=== PATIENT | female | born 1970 | race Caucasian/White ===

== ENCOUNTER 2019-11-08 11:32 | Emergency (ER) | payer BC, MEDICAID, SELFPAY ==
[2019-11-08 11:41] VITALS: BP 129/76; PULSE 74; RESP 18; TEMP 36.4; O2SAT 98
--- NOTE | 2019-11-08 11:53 | ED.EAR ---
HPI - Ear Problem General Chief complaint: Ear Stated complaint: EARACHE Time Seen by Provider: 11/08/19 11:50 Source: patient and RN notes reviewed Mode of arrival: ambulatory Limitations: no limitations History of Present Illness HPI Narrative: 49-year-old female [facility] complaints of pain to her right ear for the past week.Patient has history of chronic right ear infections does presently have a tympanostomy tube in place to her right ear at this time. Patient states that she had some left over ear drops but pain to right ear and yellowish drainage has not resolved. Patient has been taking flonase for nasal drainage and some Ibuprofen or Tylenol for her discomfort. Patient denies any acute cough, fevers, shortness of breath or any sinus pain or pressure. Patient does admit to long history of tobacco abuse of 1/2 ppd of cigarettes for over 20 + years. MD Complaint: ear pain Location: right ear Duration: constant Severity: moderate Relieving factors: NDAIDs Exacerbating factors: nothing Discharge from ear: Reports yes - purulent Associated symptoms ear: decreased hearing, rhinorrhea and other (drainage) Treatment prior to arrival: eardrops and oral analgesic Related Data Home Medications Medication Instructions Recorded Confirmed aspirin [Adult Low Dose Aspirin] 81 mg PO DAILY 11/08/19 11/08/19 atorvastatin 40 mg PO DAILY 11/08/19 11/08/19 fluticasone propionate 50 mcg INTRANASAL BID 11/08/19 11/08/19 lisinopril 10 mg PO DAILY 11/08/19 11/08/19 metformin 500 mg PO BID 11/08/19 11/08/19 omeprazole 40 mg PO DAILY 11/08/19 11/08/19 tramadol 50 mg PO BID PRN 11/08/19 11/08/19 Allergies Allergy/AdvReac Type Severity Reaction Status Date / Time Penicillins Allergy Severe Anaphylactic Verified 11/08/19 11:38 Shock Sulfa (Sulfonamide Allergy Unknown HIVES Verified 11/08/19 11:38 Antibiotics) Review of Systems Review of Systems: Narrative: CONSTITUTIONAL: Denies fever, chills, or sweats. EYES: Denies visual changes, redness, or discharge. ENT:Positive rhinorrhea, congestion,no sore throat,right otalgia. CARDIOVASCULAR: Denies chest pain, palpitations, or edema. RESPIRATORY: Denies cough or dyspnea. GASTROINTESTINAL: Denies abdominal pain, nausea, vomiting, or diarrhea. GENITOURINARY: Denies dysuria or hematuria. SKIN: Denies rash or itching. MUSCULOSKELETAL: Denies back pain, joint pain, or myalgia. NEUROLOGIC: Denies headache, numbness, or weakness. PSYCHIATRIC:Positive history of anxiety or depression. All systems reviewed & are unremarkable except as noted in HPI and below PMFSH Past Medical History Medical History (Updated 11/10/19 @ 09:24 by Natacha Vila NP) Anxiety and depression Arthritis Chronic ear infection Diabetes type 2, controlled Eczema Elevated cholesterol Hypertension Sinusitis Surgical History Surgical History (Updated 11/10/19 @ 09:22 by Natacha Vila NP) H/O LEEP History of bilateral salpingo-oophorectomy History of carpal tunnel surgery of right wrist History of cholecystectomy History of esophagogastroduodenoscopy (EGD) Family History Family History (Updated 11/10/19 @ 09:15 by Natacha Vila NP) Sibling Diabetes mellitus Mother Heart disease Father Heart disease Social History Social History (Updated 11/10/19 @ 09:16 by Natacha Vila NP) Smoking packs per day: 0.5 Smoking cigarettes per day: 10.0 Years smoked: 20 Smoking pack-years: 10.00 Smoking status: Current every day smoker Substance use: never Living arrangements: with family Gender identity (if verbalized by the patient): Female Comments At time of signature, agree with nursing past medical, surgical, social and family history. There is no relevant family history pertinent to the presenting complaint Exam Narrative: Exam Narrative: GENERAL: Well-appearing, well-nourished, and in no acute distress. HEAD: Normocephalic, atraumatic. EYES: PE
== END 2019-11-08 12:20 | disposition home or self-care (01) ==
PROVIDERS: Emergency Provider Registered Nurse
DX: H66.001 Acute suppurative otitis media without spontaneous rupture of ear drum, right ear (principal); F17.210 Nicotine dependence, cigarettes, uncomplicated; I10 Essential (primary) hypertension; E78.00 Pure hypercholesterolemia, unspecified
CPT/HCPCS: 99213; G0463

== ENCOUNTER 2020-04-13 18:50 | Emergency (ER) | payer OTHER, SELFPAY ==
[2020-04-13 18:57] VITALS: BP 155/95; PULSE 72; RESP 16; TEMP 36.3; O2SAT 99
--- NOTE | 2020-04-13 19:09 | ED.LOWEXIN ---
HPI - Extremity Injury (Lower) General Chief Complaint: Extremity Injury, Lower Stated Complaint: toe up to calf hurting Time Seen by Provider: 04/13/20 19:09 Source: patient and RN notes reviewed Mode of arrival: ambulatory Limitations: no limitations History of Present Illness HPI Narrative: 50-year-old female who presents to [facility] with complaints of 3 day history of left great toe pain with radiating of pain to her left calf region especially with ambulation. Patient has no redness to her left great toe or any known injury, Patient has areas of psoriasis to anterior aspects of bilateral lower legs, no redness or swelling pain on palpation or warmth to her left calf. Patient has strong pedal and posterior tibial pulses to left foot, nailbeds have brisk capillary refill. Negative Thanh's sign noted. MD complaint: other (Left great toe 3 days with radiating to calf for one day) Onset (ago): day(s) (3) Injury: Left: foot (left great toe radiation to left calf) Type of Injury: unknown Place: home Severity: mild Severity scale (1-10): 2 Relieving factors: NSAID and other Exacerbating factors: other (flexion of left leg) Context: other (no know injury) Associated symptoms: other (discomfort) Other symptoms: none Treatments prior to arrival: NSAIDS Related Data Home Medications Medication Instructions Recorded Confirmed aspirin [Adult Low Dose Aspirin] 81 mg PO DAILY 11/08/19 11/08/19 atorvastatin 40 mg PO DAILY 11/08/19 11/08/19 lisinopril 10 mg PO DAILY 11/08/19 11/08/19 metformin 500 mg PO BID 11/08/19 11/08/19 omeprazole 40 mg PO DAILY 11/08/19 11/08/19 calcium carbonate [Calcium 600] 04/13/20 omega 5-tde-isz-fish oil [Fish Oil] 1 cap PO DAILY 04/13/20 04/13/20 Allergies Allergy/AdvReac Type Severity Reaction Status Date / Time Penicillins Allergy Severe Anaphylactic Verified 11/08/19 11:38 Shock Sulfa (Sulfonamide Allergy Unknown HIVES Verified 11/08/19 11:38 Antibiotics) Review of Systems Review of Systems: Narrative: CONSTITUTIONAL: Denies fever, chills, or sweats. EYES: Denies visual changes, redness, or discharge. ENT: Denies rhinorrhea, congestion, sore throat, or otalgia. CARDIOVASCULAR: Denies chest pain, palpitations, or edema. RESPIRATORY: Denies cough or dyspnea. GASTROINTESTINAL: Denies abdominal pain, nausea, vomiting, or diarrhea. GENITOURINARY: Denies dysuria or hematuria. SKIN: Denies rash or itching. MUSCULOSKELETAL: Denies back pain, joint pain, or myalgia, strain of left calf muscle, no redness warmth or swelling, left great toe discomfort NEUROLOGIC: Denies headache, numbness, or weakness. PSYCHIATRIC: Denies anxiety or depression. All systems reviewed & are unremarkable except as noted in HPI and below PMFSH Past Medical History Medical History (Updated 04/13/20 @ 19:28 by Natacha Vila NP) Anxiety and depression Arthritis Chronic ear infection Diabetes type 2, controlled Eczema Elevated cholesterol Hypertension Sinusitis Surgical History Surgical History (Updated 11/10/19 @ 09:22 by Natacha Vila NP) H/O LEEP History of bilateral salpingo-oophorectomy History of carpal tunnel surgery of right wrist History of cholecystectomy History of esophagogastroduodenoscopy (EGD) Family History Family History (Updated 11/10/19 @ 09:15 by Natacha Vila NP) Sibling Diabetes mellitus Mother Heart disease Father Heart disease Social History Social History (Updated 11/10/19 @ 09:16 by Natacha Vila NP) Smoking packs per day: 0.5 Smoking cigarettes per day: 10.0 Years smoked: 20 Smoking pack-years: 10.00 Smoking status: Current every day smoker Substance use: never Gender identity (if verbalized by the patient): Female Comments At time of signature, agree with nursing past medical, surgical, social and family history. There is no relevant family history pertinent to the presenting complaint Exam Narrative: Exam Narrative: GE
== END 2020-04-13 19:33 | disposition home or self-care (01) ==
PROVIDERS: Emergency Provider Registered Nurse
DX: M79.675 Pain in left toe(s) (principal); S86.112A Strain of other muscle(s) and tendon(s) of posterior muscle group at lower leg level, left leg, initial encounter; X58.XXXA Exposure to other specified factors, initial encounter; M19.90 Unspecified osteoarthritis, unspecified site; E11.9 Type 2 diabetes mellitus without complications; I10 Essential (primary) hypertension; E78.00 Pure hypercholesterolemia, unspecified
CPT/HCPCS: 99212; G0463

== ENCOUNTER 2020-12-06 14:32 | Emergency (ER) | payer OTHER, SELFPAY | END 2020-12-06 14:59 | disposition left against medical advice (07) | LOC: EXPBETH 14:38 | PROVIDERS: Emergency Provider Nurse Practitioner Family; PCP Family Medicine | DX: Z53.21 Procedure and treatment not carried out due to patient leaving prior to being seen by health care provider (principal) | CPT/HCPCS: 99199 ==

== ENCOUNTER 2021-09-03 17:51 | Emergency (ER) | payer OTHER, SELFPAY ==
[2021-09-03 17:57] VITALS: BP 145/69; PULSE 75; RESP 14; TEMP 37; O2SAT 99
--- NOTE | 2021-09-03 18:19 | ED.GENADULT ---
HPI - General Adult General Chief complaint: Extremity Injury, Lower Stated complaint: Left toe pain Time Seen by Provider: 09/03/21 18:12 Source: patient and RN notes reviewed Mode of arrival: ambulatory Limitations: no limitations History of Present Illness HPI narrative: Patient presents today complaining of pain to her left great toe that started today. She currently rates her pain 3/10 and has tried no medication for symptoms prior to arrival. Denies any injury or trauma. States she did clip her toenails yesterday. History of diabetes. MD complaint: Left great toe pain Related Data Home Medications Medication Instructions Recorded Confirmed aspirin [Adult Low Dose Aspirin] 81 mg PO DAILY 11/08/19 12/06/20 atorvastatin 40 mg PO DAILY 11/08/19 12/06/20 lisinopril 10 mg PO DAILY 11/08/19 12/06/20 metformin 500 mg PO BID 11/08/19 12/06/20 omeprazole 40 mg PO DAILY 11/08/19 12/06/20 calcium carbonate [Calcium 600] 600 mg PO BID 04/13/20 12/06/20 omega 9-tdv-cge-fish oil [Fish Oil] 1 cap PO DAILY 04/13/20 12/06/20 Vitamin D3 09/03/21 [id number]-vit K tablet PO 09/03/21 [Adults Multivitamin] Allergies Allergy/AdvReac Type Severity Reaction Status Date / Time Penicillins Allergy Severe Anaphylactic Verified 09/03/21 18:07 Shock Sulfa (Sulfonamide Allergy Unknown HIVES Verified 09/03/21 18:07 Antibiotics) prednisone Allergy Unknown Verified 09/03/21 18:07 Review of Systems Review of Systems: CONSTITUTIONAL: Denies body aches, fever, chills, or sweats. EYES: Denies visual changes, redness, or discharge. ENT: Denies rhinorrhea, congestion, sore throat, or otalgia. CARDIOVASCULAR: Denies chest pain, palpitations, or edema. RESPIRATORY: Denies cough or dyspnea. GASTROINTESTINAL: Denies abdominal pain, nausea, vomiting, or diarrhea. GENITOURINARY: Denies dysuria or hematuria. SKIN: Denies rash, itching, or wounds. MUSCULOSKELETAL: Denies back pain, joint pain, or myalgia. + Left great toe pain PSYCH: Denies depression or anxiety. [facility] Past Medical History Medical History Anxiety and depression Arthritis Chronic ear infection Diabetes type 2, controlled Eczema Elevated cholesterol Hypertension Sinusitis Surgical History Surgical History H/O LEEP History of bilateral salpingo-oophorectomy History of carpal tunnel surgery of right wrist History of cholecystectomy History of esophagogastroduodenoscopy (EGD) Family History Family History Sibling Diabetes mellitus Mother Heart disease Father Heart disease Social History Social History Smoking packs per day: 0.5 Smoking cigarettes per day: 10.0 Years smoked: 20 Smoking pack-years: 10.00 Smoking status: Current every day smoker Substance use: never Gender identity (if verbalized by the patient): Female Comments At time of signature, I have reviewed and agree with nursing past medical, surgical, social and family history unless otherwise noted. Please see nursing chart for further information. There is no relevant family history pertinent to the presenting complaint Exam Narrative: GENERAL: Well-appearing, well-nourished, and in no acute distress. HEAD: Normocephalic, atraumatic. EYES: EOMI. No redness or drainage. Conjunctivae normal. ENT: Mucous membranes pink and moist. NECK: Normal AROM. CHEST: No respiratory distress. EXTREMITIES: Left great toe: Slight pinkness to the medial nail fold and surrounding skin. Tender to palpation. No edema or drainage noted. Toenail is trimmed very low. SKIN: Warm, dry, no rash. Capillary refill normal. Normal skin turgor. NEURO: No focal deficits. Alert and oriented x3. Gait steady. PSYCH: Normal affect. No signs of d
== END 2021-09-03 18:30 | disposition home or self-care (01) ==
PROVIDERS: Emergency Provider Nurse Practitioner
DX: L60.0 Ingrowing nail (principal); F17.210 Nicotine dependence, cigarettes, uncomplicated; M19.90 Unspecified osteoarthritis, unspecified site; E11.9 Type 2 diabetes mellitus without complications; E78.00 Pure hypercholesterolemia, unspecified; I10 Essential (primary) hypertension; Z79.82 Long term (current) use of aspirin
CPT/HCPCS: 99213; G0463

== ENCOUNTER 2022-04-28 10:26 | Emergency (ER) | payer OTHER, SELFPAY ==
[2022-04-28 10:34] VITALS: BP 152/78; PULSE 65; RESP 18; TEMP 37.2; O2SAT 100
--- NOTE | 2022-04-28 11:00 | ED.GENADULT ---
HPI - General Adult General Chief complaint: Ear Stated complaint: Right ear pain Source: patient Mode of arrival: ambulatory Limitations: no limitations History of Present Illness HPI narrative: Patient presents for evaluation of right ear pain since yesterday. She has chronic sinus congestion for several months. She denies any fever, chills, nausea, vomiting. She has an occasional dry cough. No SOB. She was exposed to COVID about one week ago. She has never had COVID. She did not receive COVID vaccination. She smokes about one ppd. She has some discomfort behind her right ear. She has had recurrent ear infections and had tympanostomy tubes placed a few years ago with removal of tube about a year ago. No additional complaints or concerns. Related Data Home Medications Medication Instructions Recorded Confirmed Fish Oil Concentrate 04/28/22 aspirin 81 mg capsule mg 04/28/22 atorvastatin 40 mg tablet mg 04/28/22 calcium carb-vit D3-minerals 600 tablet 04/28/22 mg calcium-400 unit tablet famotidine 20 mg tablet mg 04/28/22 fluticasone propionate 50 intranasal 04/28/22 mcg/actuation nasal spray,suspension ibuprofen 800 mg tablet mg 04/28/22 lisinopril 10 mg tablet mg 04/28/22 metformin 500 mg tablet mg 04/28/22 omeprazole 40 mg capsule,delayed mg 04/28/22 release Allergies Allergy/AdvReac Type Severity Reaction Status Date / Time Penicillins Allergy Severe Anaphylactic Verified 09/03/21 18:07 Shock Sulfa (Sulfonamide Allergy Unknown HIVES Verified 09/03/21 18:07 Antibiotics) prednisone Allergy Unknown Verified 09/03/21 18:07 Review of Systems Review of Systems: CONSTITUTIONAL: Denies fever, chills, or sweats. EYES: Denies visual changes, redness, or discharge. ENT: Reports right ear pain, nasal congestion and pain behind right ear CARDIOVASCULAR: Denies chest pain, palpitations, or edema. RESPIRATORY: Reports nonprodcutive cough. Denies dyspnea. GASTROINTESTINAL: Denies abdominal pain, nausea, vomiting, or diarrhea. GENITOURINARY: Denies dysuria or hematuria. SKIN: Denies rash or itching. MUSCULOSKELETAL: Denies back pain, joint pain, or myalgia. NEUROLOGIC: Denies headache, numbness, dizziness, or weakness. PSYCHIATRIC: Denies anxiety or depression. [facility] Past Medical History Medical History Anxiety and depression Arthritis Chronic ear infection Diabetes type 2, controlled Eczema Elevated cholesterol Hypertension Sinusitis Surgical History Surgical History H/O LEEP History of bilateral salpingo-oophorectomy History of carpal tunnel surgery of right wrist History of cholecystectomy History of esophagogastroduodenoscopy (EGD) Family History Family History Sibling Diabetes mellitus Mother Heart disease Father Heart disease Social History Social History (Updated 04/28/22 @ 11:43 by Albin Denise [facility], ) Smoking packs per day: 1 Smoking cigarettes per day: 20.0 Years smoked: 20 Smoking pack-years: 20.00 Smoking status: Current every day smoker Substance use: never Living arrangements: with family Gender identity (if verbalized by the patient): Female Exam Narrative: GENERAL: Well-appearing, well-nourished, and in no acute distress. HEAD: Normocephalic, atraumatic. EYES: PERRLA and EOMI. ENT: Nares clear, no rhinorrhea or epistaxis. Mucous membranes moist. Oropharynx without tonsillar hypertrophy exudate or other lesions. Right TM erythema, scarring with middle ear fluid and bulging NECK: Supple. No adenopathy or masses. No carotid bruits or JVD CHEST: Clear to auscultation. No respiratory distress. No wheezes rales or rhonchi HEART: Regular rate and rhythm. No murmur heard. Normal peripheral pulses. ABDOMEN: Soft, nontender, nondistended, jaswinder
== END 2022-04-28 11:27 | disposition home or self-care (01) ==
PROVIDERS: Emergency Provider Nurse Practitioner
DX: H66.91 Otitis media, unspecified, right ear (principal); Z20.822 Contact with and (suspected) exposure to COVID-19; F17.210 Nicotine dependence, cigarettes, uncomplicated; M19.90 Unspecified osteoarthritis, unspecified site; E11.9 Type 2 diabetes mellitus without complications; E78.00 Pure hypercholesterolemia, unspecified; I10 Essential (primary) hypertension; Z79.82 Long term (current) use of aspirin
CPT/HCPCS: 87426; 99213; C9803; G0463

== ENCOUNTER 2022-09-24 17:22 | Emergency (ER) | payer OTHER, SELFPAY ==
[2022-09-24 17:30] VITALS: BP 125/71; PULSE 60; RESP 16; TEMP 36.4; O2SAT 99
--- NOTE | 2022-09-24 18:15 | ED.EAR ---
HPI - Ear Problem General Chief complaint: Ear Stated complaint: Right Ear Irritation Source: patient Mode of arrival: ambulatory Limitations: no limitations History of Present Illness HPI Narrative: 52-year-old female presents to [facility] with complaints of right ear pain and scant amount of clear drainage from her right ear since yesterday. Patient reports long history of ear infections reports that she had tube removed from her right ear 2 years ago. Patient has cough, congestion, runny nose, fever, body aches or chills. MD Complaint: ear pain and ear discharge Location: right ear Duration: constant Discharge from ear: Reports yes - clear Treatment prior to arrival: none Related Data Home Medications Medication Instructions Recorded Confirmed Fish Oil Concentrate 1 tab-cap DIRECTED 04/28/22 09/24/22 aspirin 81 mg capsule 81 mg DIRECTED 04/28/22 09/24/22 atorvastatin 40 mg tablet 40 mg DIRECTED 04/28/22 09/24/22 calcium carb-vit D3-minerals 600 1 tablet DIRECTED 04/28/22 09/24/22 mg calcium-400 unit tablet famotidine 20 mg tablet 20 mg DIRECTED 04/28/22 09/24/22 fluticasone propionate 50 50 mcg intranasal DIRECTED 04/28/22 09/24/22 mcg/actuation nasal spray,suspension ibuprofen 800 mg tablet 800 mg DIRECTED 04/28/22 09/24/22 lisinopril 10 mg tablet 10 mg DIRECTED 04/28/22 09/24/22 metformin 500 mg tablet 500 mg DIRECTED 04/28/22 09/24/22 Allergies Allergy/AdvReac Type Severity Reaction Status Date / Time Penicillins Allergy Severe Anaphylactic Verified 09/03/21 18:07 Shock Sulfa (Sulfonamide Allergy Unknown HIVES Verified 09/03/21 18:07 Antibiotics) prednisone Allergy Unknown Verified 09/03/21 18:07 Review of Systems Constitutional: Constitutional: Denies chills, Denies fatigue, Denies fever(s) and Denies weakness ENT: Denies dizziness, Denies epistaxis, Denies nasal congestion and Denies sore throat Comments: Right ear pain Cardiovascular: Cardiovascular: Denies chest pain Respiratory: Respiratory: Denies chest congestion, Denies cough, Denies dyspnea and Denies wheezing Gastrointestinal: Gastrointestinal: Denies diarrhea, Denies nausea and Denies vomiting Musculoskeletal: Musculoskeletal: Denies arthralgias and Denies joint swelling Integumentary/Breasts: Skin/Breast: Denies rash PMFSH Past Medical History Medical History Anxiety and depression Arthritis Chronic ear infection Diabetes type 2, controlled Eczema Elevated cholesterol Hypertension Sinusitis Surgical History Surgical History H/O LEEP History of bilateral salpingo-oophorectomy History of carpal tunnel surgery of right wrist History of cholecystectomy History of esophagogastroduodenoscopy (EGD) Family History Family History Sibling Diabetes mellitus Mother Heart disease Father Heart disease Social History Social History Smoking packs per day: 1 Smoking cigarettes per day: 20.0 Years smoked: 20 Smoking pack-years: 20.00 Smoking status: Current every day smoker Substance use: never Gender identity (if verbalized by the patient): Female Comments At time of signature, I agree with nursing past medical, surgical, social and family history. There is no relevant family history pertinent to the presenting complaint. Exam Const: General: healthy appearing, no acute distress and alert Nutritional Appearance: well nourished Orientation/consciousness: patient oriented x3 Limitations: no limitations HENMT: Head: normal to inspection Ears: external ears normal, EAC's normal and TM abnormal erythematous on the left; with no myringotomy tubes present, not obstructed by cerumen and not perforated Mouth: Yes lip normal and Yes moist mucous membra
== END 2022-09-24 18:27 | disposition home or self-care (01) ==
PROVIDERS: Emergency Provider Nurse Practitioner Family
DX: H66.92 Otitis media, unspecified, left ear (principal); F17.210 Nicotine dependence, cigarettes, uncomplicated; M19.90 Unspecified osteoarthritis, unspecified site; E11.9 Type 2 diabetes mellitus without complications; E78.00 Pure hypercholesterolemia, unspecified; Z79.82 Long term (current) use of aspirin
CPT/HCPCS: 99213; G0463

== ENCOUNTER 2022-12-11 10:47 | Outpatient (CLI) | payer OTHER, SELFPAY | END 2022-12-11 10:48 | disposition home or self-care (01) | DX: H65.491 Other chronic nonsuppurative otitis media, right ear (principal); H90.11 Conductive hearing loss, unilateral, right ear, with unrestricted hearing on the contralateral side | CPT/HCPCS: 92557; 92567 ==

== ENCOUNTER 2023-03-18 13:26 | Emergency (ER) | payer OTHER, SELFPAY ==
[2023-03-18 13:31] VITALS: BP 121/76; PULSE 61; RESP 20; TEMP 37; O2SAT 100
--- NOTE | 2023-03-18 13:42 | ED.EAR ---
HPI - Ear Problem General Chief complaint: Ear Stated complaint: Ear Pain History of Present Illness HPI Narrative: PATIENT PRESENTS WITH DRAINAGE FROM RIGHT EAR. PATIENT HAS TUBE IN EAR STATES SHE PLACED A Q-TIP IN HER EAR DUE TO ITCHING IN HER EAR. PATIENT THINKS SHE MAY HAVE SCRATCHED HER EAR. CONTINUES TO HAVE SCANT AMOUNT OF BLOODY DRAINAGE FROM EAR. Related Data Home Medications Medication Instructions Recorded Confirmed aspirin 81 mg capsule 81 mg PO DAILY 04/28/22 03/18/23 atorvastatin 40 mg tablet 40 mg PO DAILY 04/28/22 03/18/23 calcium carb-vit D3-minerals 600 1 tablet PO DAILY 04/28/22 03/18/23 mg calcium-400 unit tablet famotidine 20 mg tablet 20 mg PO BID 04/28/22 03/18/23 ibuprofen 800 mg tablet 800 mg PO Q8H PRN Pain, Moderate 04/28/22 03/18/23 lisinopril 10 mg tablet 10 mg PO DAILY 04/28/22 03/18/23 fluticasone propionate 50 2 spray intranasal DAILY 03/18/23 03/18/23 mcg/actuation nasal spray,suspension Allergies Allergy/AdvReac Type Severity Reaction Status Date / Time Penicillins Allergy Severe Anaphylactic Verified 03/18/23 13:32 Shock prednisone Allergy Unknown Unknown Verified 03/18/23 13:32 Sulfa (Sulfonamide Allergy Unknown HIVES Verified 03/18/23 13:32 Antibiotics) Review of Systems Review of Systems: CONSTITUTIONAL: DENIES CHILLS, OR SWEATS. REPORTS FEVER AND GENERALIZED BODY ACHES EYES: DENIES VISUAL CHANGES, REDNESS, OR DISCHARGE. ENT: DENIES OTALGIA. REPORTS NASAL CONGESTION RUNNY NOSE AND SORE THROAT CARDIOVASCULAR: DENIES CHEST PAIN, PALPITATIONS, OR EDEMA. RESPIRATORY: DENIES DYSPNEA. REPORTS OCCASIONAL COUGH GASTROINTESTINAL: DENIES ABDOMINAL PAIN, NAUSEA, VOMITING, OR DIARRHEA. GENITOURINARY: DENIES DYSURIA OR HEMATURIA. SKIN: DENIES RASH OR ITCHING. MUSCULOSKELETAL: DENIES BACK PAIN, JOINT PAIN, OR MYALGIA. REPORTS GENERALIZED BODY ACHES NEUROLOGIC: DENIES HEADACHE, NUMBNESS, OR WEAKNESS. PSYCHIATRIC: DENIES ANXIETY OR DEPRESSION. [facility], [facility] Past Medical History Medical History Anxiety and depression Arthritis Chronic ear infection Diabetes type 2, controlled Eczema Elevated cholesterol Hypertension Sinusitis Surgical History Surgical History H/O LEEP History of bilateral salpingo-oophorectomy History of carpal tunnel surgery of right wrist History of cholecystectomy History of esophagogastroduodenoscopy (EGD) Family History Family History Sibling Diabetes mellitus Mother Heart disease Father Heart disease Social History Social History Smoking packs per day: 1 Smoking cigarettes per day: 20.0 Years smoked: 20 Smoking pack-years: 20.00 Smoking status: Current every day smoker Substance use: never Living arrangements: with family Gender identity (if verbalized by the patient): Female Comments AT TIME OF SIGNATURE, AGREE WITH NURSING PAST MEDICAL, SURGICAL, SOCIAL AND FAMILY HISTORY. THERE IS NO RELEVANT FAMILY HISTORY PERTINENT TO THE PRESENTING COMPLAINT Exam Narrative: THE PATIENT IS A WELL-DEVELOPED, WELL-NOURISHED IN NO ACUTE DISTRESS. SKIN: SKIN IS WARM AND DRY WITHOUT ERYTHEMA, SWELLING OR EXUDATE. THERE IS GOOD TURGOR. NO TENTING. HEAD: ATRAUMATIC. NORMOCEPHALIC. NO TEMPORAL OR SCALP TENDERNESS. EYES: MOIST AND BRIGHT. SCLERA AND CONJUNCTIVAE NORMAL. NO DISCHARGE. PERRLA. EXTRAOCULAR MOTIONS INTACT. GROSS VISUAL ACUITY INTACT. EARS: PINNA IS NORMAL SHAPE AND CONTOUR. CLEAR EXTERNAL AUDITORY CANALS. TM PEARLY WELLS WITH GOOD CONE OF LIGHT, NO ERYTHEMA OR SUPPURATION. BILATERAL CERUMEN NOTED NO GROSS HEARING DEFICIT. NOSE: PINK, MOIST MUCOSA WITH GOOD AIR MOVEMENT. CLEAR RHINORRHEA WITHOUT NASAL FLARING. SEPTUM MIDLINE. MOUTH: MOIST MUCOUS MEMBRANES. THROAT; MILD ERYTHEMA NOTED TO POSTERIOR OR
== END 2023-03-18 13:47 | disposition home or self-care (01) ==
PROVIDERS: Emergency Provider Nurse Practitioner Family; PCP Family Medicine
DX: H60.91 Unspecified otitis externa, right ear (principal); F17.210 Nicotine dependence, cigarettes, uncomplicated; M19.90 Unspecified osteoarthritis, unspecified site; E11.9 Type 2 diabetes mellitus without complications; E78.00 Pure hypercholesterolemia, unspecified; I10 Essential (primary) hypertension
CPT/HCPCS: 99213; G0463

== ENCOUNTER 2023-08-07 13:14 | Emergency (ER) | payer OTHER, SELFPAY ==
[2023-08-07 13:22] VITALS: BP 136/76; PULSE 64; RESP 14; TEMP 37.2; O2SAT 100
--- NOTE | 2023-08-07 14:11 | ED.EAR ---
HPI - Ear Problem General Chief complaint: Ear Stated complaint: Right Ear Pain Time Seen by Provider: 08/07/23 14:04 Source: patient and RN notes reviewed Mode of arrival: ambulatory Limitations: no limitations History of Present Illness HPI Narrative: Patient presents today complaining of right ear pain since yesterday with some mild drainage. She has been taking ibuprofen with some relief. History of ear tube to the right ear. Denies any additional symptoms. Related Data Home Medications Medication Instructions Recorded Confirmed aspirin 81 mg capsule 81 mg PO DAILY 04/28/22 08/07/23 atorvastatin 40 mg tablet 40 mg PO DAILY 04/28/22 08/07/23 calcium carb-vit D3-minerals 600 1 tablet PO DAILY 04/28/22 08/07/23 mg calcium-400 unit tablet famotidine 20 mg tablet 20 mg PO BID 04/28/22 08/07/23 ibuprofen 800 mg tablet 800 mg PO Q8H PRN Pain, Moderate 04/28/22 08/07/23 lisinopril 10 mg tablet 10 mg PO DAILY 04/28/22 08/07/23 fluticasone propionate 50 2 spray intranasal DAILY 03/18/23 08/07/23 mcg/actuation nasal spray,suspension Allergies Allergy/AdvReac Type Severity Reaction Status Date / Time Penicillins Allergy Severe Anaphylactic Verified 08/07/23 13:33 Shock prednisone Allergy Unknown Unknown Verified 08/07/23 13:33 Sulfa (Sulfonamide Allergy Unknown HIVES Verified 08/07/23 13:33 Antibiotics) Review of Systems Review of Systems: CONSTITUTIONAL: Denies body aches, fever, chills, or sweats. EYES: Denies visual changes, redness, or discharge. ENT: Denies rhinorrhea, congestion, sore throat. + right ear pain and drainage CARDIOVASCULAR: Denies chest pain, palpitations, or edema. RESPIRATORY: Denies cough or dyspnea. GASTROINTESTINAL: Denies abdominal pain, nausea, vomiting, or diarrhea. GENITOURINARY: Denies dysuria or hematuria. SKIN: Denies rash, itching, or wounds. MUSCULOSKELETAL: Denies back pain, joint pain, or myalgia. NEUROLOGIC: Denies headache, numbness, tingling, or weakness. PSYCH: Denies depression or anxiety. [facility] Past Medical History Medical History Anxiety and depression Arthritis Chronic ear infection Diabetes type 2, controlled Eczema Elevated cholesterol Hypertension Sinusitis Surgical History Surgical History H/O LEEP History of bilateral salpingo-oophorectomy History of carpal tunnel surgery of right wrist History of cholecystectomy History of esophagogastroduodenoscopy (EGD) Family History Family History Sibling Diabetes mellitus Mother Heart disease Father Heart disease Social History Social History Smoking packs per day: 1 Smoking cigarettes per day: 20.0 Years smoked: 20 Smoking pack-years: 20.00 Smoking status: Current every day smoker Substance use: never Living arrangements: with family Gender identity (if verbalized by the patient): Female Comments At time of signature, I have reviewed and agree with nursing past medical, surgical, social and family history unless otherwise noted. Please see nursing chart for further information. There is no relevant family history pertinent to the presenting complaint Exam Narrative: GENERAL: Well-appearing, well-nourished, and in no acute distress. HEAD: Normocephalic, atraumatic. EYES: EOMI. No redness or drainage. Conjunctivae normal. ENT: Mucous membranes pink and moist. Nares clear. No rhinorrhea. Left TM normal. Right TM with ear 2. Draining purulent green/yellow discharge. NECK: Normal AROM. CHEST: No respiratory distress. EXTREMITIES: Normal range of motion. No edema. SKIN: Warm, dry, no rash. Capillary refill normal. Normal skin turgor. NEURO: No focal deficits. Alert and oriented x3. Gait steady. PSYCH: Normal affect.
== END 2023-08-07 14:20 | disposition home or self-care (01) ==
PROVIDERS: Emergency Provider Nurse Practitioner; PCP Family Medicine
DX: H66.91 Otitis media, unspecified, right ear (principal); F17.210 Nicotine dependence, cigarettes, uncomplicated; M19.90 Unspecified osteoarthritis, unspecified site; E11.9 Type 2 diabetes mellitus without complications; E78.00 Pure hypercholesterolemia, unspecified; I10 Essential (primary) hypertension; Z79.82 Long term (current) use of aspirin
CPT/HCPCS: 99213; G0463

== ENCOUNTER 2023-10-19 15:06 | Emergency (ER) | payer OTHER, SELFPAY ==
[2023-10-19 15:15] VITALS: BP 163/83; PULSE 59; RESP 16; TEMP 36.9; O2SAT 98
--- NOTE | 2023-10-19 15:24 | ED.EAR ---
HPI - Ear Problem General Chief complaint: Ear Stated complaint: right ear issue Source: patient Mode of arrival: ambulatory Limitations: no limitations History of Present Illness HPI Narrative: 53 y/o female with hx ear infections presented for c/o bloody drainage to right ear today. Endorses increase in pain and pressure over the past few days, and today when she blew her nose she felt a pop in the ear and then noticed the blood. States the pressure has improved since then. Has not f/u with her ENT because she mentioned surgery. States a T tube was placed within the year, but states the ear infections have worsened since placement. Endorses chronic tinnitus. Denies dizziness, n/v/d/f/c. Complaint: ear pain Related Data Home Medications Medication Instructions Recorded Confirmed aspirin 81 mg capsule 81 mg PO DAILY 04/28/22 10/19/23 atorvastatin 40 mg tablet 40 mg PO DAILY 04/28/22 10/19/23 calcium carb-vit D3-minerals 600 1 tablet PO DAILY 04/28/22 10/19/23 mg calcium-400 unit tablet famotidine 20 mg tablet 20 mg PO BID 04/28/22 10/19/23 ibuprofen 800 mg tablet 800 mg PO Q8H PRN Pain, Moderate 04/28/22 10/19/23 lisinopril 10 mg tablet 10 mg PO DAILY 04/28/22 10/19/23 fluticasone propionate 50 2 spray intranasal DAILY 03/18/23 10/19/23 mcg/actuation nasal spray,suspension Allergies Allergy/AdvReac Type Severity Reaction Status Date / Time Penicillins Allergy Severe Anaphylactic Verified 10/19/23 15:08 Shock prednisone Allergy Unknown Unknown Verified 10/19/23 15:08 Sulfa (Sulfonamide Allergy Unknown HIVES Verified 10/19/23 15:08 Antibiotics) Review of Systems Review of Systems: CONSTITUTIONAL: Denies malaise, chills, or fever. EYES: Denies visual changes, redness, or discharge. ENT: Denies rhinorrhea, congestion, sinus pain, and sore throat. Reports ear pain CARDIOVASCULAR: Denies chest pain, palpitations, or edema. RESPIRATORY: Denies cough or dyspnea. NEUROLOGIC: Denies headache. All systems reviewed & are unremarkable except as noted in HPI and below PMFSH Past Medical History Medical History Anxiety and depression Arthritis Chronic ear infection Diabetes type 2, controlled Eczema Elevated cholesterol Hypertension Sinusitis Surgical History Surgical History H/O LEEP History of bilateral salpingo-oophorectomy History of carpal tunnel surgery of right wrist History of cholecystectomy History of esophagogastroduodenoscopy (EGD) Family History Family History Sibling Diabetes mellitus Mother Heart disease Father Heart disease Social History Social History Smoking packs per day: 1 Smoking cigarettes per day: 20.0 Years smoked: 20 Smoking pack-years: 20.00 Smoking status: Current every day smoker Substance use: never Living arrangements: with family Gender identity (if verbalized by the patient): Female Comments At time of signature, agree with nursing past medical, surgical, social and family history. There is no relevant family history pertinent to the presenting complaint Exam Narrative: GENERAL: Well-appearing EYES: conjunctivae clear ENT: Nares clear. Mucous membranes moist. Left TM pearly sadler with dull light reflex; Right TM unable to fully visualize due to purulent drainage and bloody drainage c/w ruptured TM; unable to visualize T-tube. No canal swelling or erythema. no tragal tenderness. Oropharynx not erythematous without lesions. no drooling, no hoarseness, no trismus, uvula midline. NECK: Supple. No lymphadenopathy CHEST: Clear to auscultation, breath sounds equal. HEART: Regular rate and rhythm. No murmur heard. SKIN: Warm, dry, no rash. NEURO: Alert and oriented x3. Course Course Emergency Course: [place]
== END 2023-10-19 15:43 | disposition home or self-care (01) ==
PROVIDERS: Emergency Provider Nurse Practitioner Family; PCP Family Medicine
DX: H66.001 Acute suppurative otitis media without spontaneous rupture of ear drum, right ear (principal); F17.210 Nicotine dependence, cigarettes, uncomplicated; E11.9 Type 2 diabetes mellitus without complications; E78.00 Pure hypercholesterolemia, unspecified; I10 Essential (primary) hypertension; M19.90 Unspecified osteoarthritis, unspecified site; Z79.82 Long term (current) use of aspirin
CPT/HCPCS: 99213; G0463

== ENCOUNTER 2023-10-28 20:34 | Emergency (ER) | payer OTHER, SELFPAY ==
--- NOTE | ~2023-10-28 | XR_ITS ---
EXAMINATION: XR chest 2V DATE: 10/28/2023 21:03 INDICATION: Chest pain. TECHNIQUE: Frontal and lateral views of the chest were obtained. COMPARISON: Chest 2 views 07/24/2011 FINDINGS: There is no pneumonia, pleural effusion, or pneumothorax. The heart size is normal. Surgica l clips in the right upper quadrant are likely from cholecystectomy. IMPRESSION: 1. No acute cardiopulmonary disease. Reviewed, dictated and finalized at location E. TIME STAFF INTERPRETER
--- NOTE | 2023-10-28 20:37 | ECG_ITS ---
Measurements Intervals [place] Rate: 55 P: 70 VT: 140 QRS: 39 QRSD: 76 T: 53 QT: 359 QTc: 346 Interpretive Statements SINUS BRADYCARDIA BASELINE ARTIFACT- I, II, AVR BORDERLINE ECG NO PREVIOUS ECG AVAILABLE FOR COMPARISON Electronically Signed On 10-29-2023 6:41:31 ANIMAL CARETAKER by Kar Victor D.O.
[2023-10-28 20:46] VITALS: BP 162/65; PULSE 59; RESP 15; TEMP 36.6; O2SAT 100
[2023-10-28 20:53] LABS: Basophils Absolute Auto 0.1 K/mm3 (0.0-0.1); Basophils Percent Auto 0.7 % (0.2-1.2); Eosinophils Absolute Auto 0.2 K/mm3 (0-0.3); Eosinophils Percent Auto 2.9 % (0-4.4); Hematocrit 39.3 % (37.0-47.0); Hemoglobin 13.2 g/dL (12.0-15.0); Immature Granulocyte Absolute 0.02 K/mm3 (0.00-0.031); Immature Granulocyte Percent A 0.3 % (0-0.5); Lymphocytes Absolute Auto 3.59 K/mm3 (0.9-3.2); Lymphocytes Percent Auto 46.9 % (18.3-44.2); Mean Corpuscular HGB Conc 33.6 g/dl (32-36); Mean Corpuscular Hemoglobin 31.9 pg (26-34); Mean Corpuscular Volume 94.9 fl (80-100); Mean Platelet Volume 10.7 fl (7.4-10.4); Monocytes Absolute Auto 0.7 K/mm3 (0.1-0.6); Monocytes Percent Auto 8.6 % (2.6-8.5); Neutrophils Absolute Auto 3.1 K/mm3 (1.3-6.7); Neutrophils Percent Auto 40.6 % (45.5-73.1); Platelet Count Result 200 k/mm3 (150-375); Red Blood Count 4.14 M/mm3 (4.2-5.4); White Blood Count 7.7 K/mm3 (4.5-10.0)
[2023-10-28 21:03] LABS: Alanine Aminotransferase 14 U/L (6-35); Albumin Level 3.7 g/dL (3.5-5.1); Alkaline Phosphatase 88 U/L (38-126); Anion Gap 5 mmol/L (8-16); Aspartate Amino Transferase 19 U/L (14-36); Bilirubin,Total 0.4 mg/dL (0.2-1.3); Blood Urea Nitrogen 12 mg/dL (7-17); Calcium 9.3 mg/dL (8.4-10.2); Carbon Dioxide 28 mmol/L (22-30); Chloride 106 mmol/L (98-107); Estimated CRCL calculation 59 ml/min; Estimated Glomerular Filt Rate > 60; Glucose 99 mg/dL (65-110); Lipase 187 U/L (23-300); Partial Thromboplastin Time 26.7 SECONDS (22.3-36.8); Potassium 3.9 mmol/L (3.4-5.0); Prothrombin Time 13.3 Seconds (11.1-14.7); Sodium 139 mmol/L (137-145)
[2023-10-28 21:14] LABS: Troponin I < 0.012 ng/mL (0.000-0.034)
[2023-10-28 22:19] VITALS: O2SAT 99
--- NOTE | 2023-10-28 23:15 | PC.NURSE ---
when going back into room, pt was not in the room. cardiac leads were torn off and placed on the bed. no patient belongings in room.
== END 2023-10-28 23:10 | disposition left against medical advice (07) ==
PROVIDERS: Emergency Provider Emergency Medicine; PCP Family Medicine
DX: R07.9 Chest pain, unspecified (principal)
CPT/HCPCS: 36415; 71046; 80053; 83690; 84484; 85025; 85610; 85730; 93005; 99199

== ENCOUNTER 2024-05-25 13:36 | Emergency (ER) | payer OTHER, SELFPAY ==
[2024-05-25 13:47] VITALS: BP 138/69; PULSE 70; RESP 16; TEMP 36.9; O2SAT 99
--- NOTE | 2024-05-25 14:13 | ED.EAR ---
HPI - Ear Problem General Chief complaint: Ear Stated complaint: Sore Throat/Ear Pain Time Seen by Provider: 05/25/24 14:13 Source: patient Mode of arrival: ambulatory Limitations: no limitations History of Present Illness HPI Narrative: 54-year-old female presents with complaint of pain to right ear for 1 day. Today tender on palpation. Also reports decreased hearing. Afebrile. All systems reviewed and negative except as noted above. Related Data Home Medications Medication Instructions Recorded Confirmed aspirin 81 mg capsule 81 mg PO DAILY 04/28/22 10/19/23 atorvastatin 40 mg tablet 40 mg PO DAILY 04/28/22 10/19/23 calcium carb-vit D3-minerals 600 1 tablet PO DAILY 04/28/22 10/19/23 mg calcium-400 unit tablet famotidine 20 mg tablet 20 mg PO BID 04/28/22 10/19/23 ibuprofen 800 mg tablet 800 mg PO Q8H PRN Pain, Moderate 04/28/22 10/19/23 lisinopril 10 mg tablet 10 mg PO DAILY 04/28/22 10/19/23 Allergies Allergy/AdvReac Type Severity Reaction Status Date / Time Penicillins Allergy Severe Anaphylactic Verified 10/28/23 20:49 Shock prednisone Allergy Unknown Unknown Verified 10/28/23 20:49 Sulfa (Sulfonamide Allergy Unknown HIVES Verified 10/28/23 20:49 Antibiotics) Review of Systems Review of Systems: CONSTITUTIONAL: Denies fever, chills, or sweats. EYES: Denies visual changes, redness, or discharge. ENT: Denies rhinorrhea, congestion, sore throat. Reports pain to right ear. CARDIOVASCULAR: Denies chest pain, palpitations, or edema. RESPIRATORY: Denies cough or dyspnea. GASTROINTESTINAL: Denies abdominal pain, nausea, vomiting, or diarrhea. GENITOURINARY: Denies dysuria or hematuria. SKIN: Denies rash or itching. MUSCULOSKELETAL: Denies back pain, joint pain, or myalgia. NEUROLOGIC: Denies headache, numbness, or weakness. PSYCHIATRIC: Denies anxiety or depression. All other systems reviewed are negative, except as documented in HPI. [facility] Past Medical History Medical History Anxiety and depression Arthritis Chronic ear infection Diabetes type 2, controlled Eczema Elevated cholesterol Hypertension Sinusitis Surgical History Surgical History H/O LEEP History of bilateral salpingo-oophorectomy History of carpal tunnel surgery of right wrist History of cholecystectomy History of esophagogastroduodenoscopy (EGD) Family History Family History Sibling Diabetes mellitus Mother Heart disease Father Heart disease Social History Social History Smoking packs per day: 1 Smoking cigarettes per day: 20.0 Years smoked: 20 Smoking pack-years: 20.00 Smoking status: Current every day smoker Substance use: never Living arrangements: with family Gender identity (if verbalized by the patient): Female Comments At time of signature, agree with nursing past medical, surgical, social and family history. There is no relevant family history pertinent to the presenting complaint. Exam Narrative: GENERAL: This is a well-nourished, well-developed patient, in no apparent distress. HEAD: normocephalic, atraumatic. EYES: PERRL. Sclera clear/white. Vision is grossly intact. EARS: External ears normal, erythema and swelling to R ear canal with tenderness on exam, R TM erythematous with yellow drainage from ear tube. NOSE: External nose normal NECK: Neck supple, non-tender without lymphadenopathy, masses or thyromegaly. CARDIOVASCULAR: Regular rate and rhythm without murmurs, gallops, or rubs. RESPIRATORY: Clear to auscultation. Breath sounds equal bilaterally. No wheezes, rales, or rhonchi. SKIN: warm, Dry, intact with no suspicious lesions or rash, good texture and turgor. NEURO: awake, alert, and oriented to person, place and time. There were no obvious focal
== END 2024-05-25 14:30 | disposition home or self-care (01) ==
PROVIDERS: Emergency Provider Nurse Practitioner Family; PCP Physician Assistant
DX: H66.91 Otitis media, unspecified, right ear (principal); H60.501 Unspecified acute noninfective otitis externa, right ear; F17.210 Nicotine dependence, cigarettes, uncomplicated; M19.90 Unspecified osteoarthritis, unspecified site; E11.9 Type 2 diabetes mellitus without complications; E78.00 Pure hypercholesterolemia, unspecified; I10 Essential (primary) hypertension; Z79.82 Long term (current) use of aspirin
CPT/HCPCS: 99213; G0463

== ENCOUNTER 2024-06-14 11:56 | Emergency (ER) | payer OTHER, SELFPAY ==
[2024-06-14 12:00] VITALS: BP 128/70; PULSE 66; RESP 18; TEMP 36.7; O2SAT 99
--- NOTE | 2024-06-14 12:06 | ED.EAR ---
HPI - Ear Problem General Chief complaint: Ear Stated complaint: right ear Time Seen by Provider: 06/14/24 12:06 Source: patient, RN notes reviewed and old records reviewed Mode of arrival: ambulatory Limitations: no limitations History of Present Illness HPI Narrative: 54 [facility] with complaints of right ear pain and some bleeding noted from ear since yesterday with right ear felling clogged.. Patient does have tube in place to her right ear reports history of ear problems. Patient reports sinus congestion and drainage no fevers or chills. Patient reports that she has been using Flonase. MD Complaint: ear pain Location: right ear Duration: constant Severity: moderate Discharge from ear: Reports yes - bloody Treatment prior to arrival: other (flonase) Related Data Home Medications Medication Instructions Recorded Confirmed atorvastatin 40 mg tablet 40 mg PO DAILY 04/28/22 06/14/24 calcium carb-vit D3-minerals 600 1 tablet PO DAILY 04/28/22 06/14/24 mg calcium-400 unit tablet famotidine 20 mg tablet 20 mg PO BID 04/28/22 06/14/24 lisinopril 10 mg tablet 10 mg PO DAILY 04/28/22 06/14/24 omeprazole 20 mg capsule,delayed 20 mg PO DAILY 06/14/24 06/14/24 release Allergies Allergy/AdvReac Type Severity Reaction Status Date / Time Penicillins Allergy Severe Anaphylactic Verified 06/14/24 12:10 Shock prednisone Allergy Unknown Unknown Verified 06/14/24 12:10 Sulfa (Sulfonamide Allergy Unknown HIVES Verified 06/14/24 12:10 Antibiotics) Review of Systems Review of Systems: CONSTITUTIONAL: Denies malaise, chills, sweats, or fever. EYES: Denies visual changes, redness, or discharge. ENT: Reports rhinorrhea, congestion, no sinus pain, right otalgia and no sore throat. CARDIOVASCULAR: Denies chest pain, palpitations, or edema. RESPIRATORY: Reports no acute cough.? Denies dyspnea. GASTROINTESTINAL: Denies abdominal pain, nausea, vomiting, diarrhea SKIN: Denies rash or itching. MUSCULOSKELETAL: Denies myalgia. NEUROLOGIC: Denies headache. All systems reviewed & are unremarkable except as noted in HPI and below PMFSH Past Medical History Medical History Anxiety and depression Arthritis Chronic ear infection Diabetes type 2, controlled Eczema Elevated cholesterol Hypertension Sinusitis Surgical History Surgical History H/O LEEP History of bilateral salpingo-oophorectomy History of carpal tunnel surgery of right wrist History of cholecystectomy History of esophagogastroduodenoscopy (EGD) History of placement of ear tubes right ear only Family History Family History Sibling Diabetes mellitus Mother Heart disease Father Heart disease Social History Social History Smoking packs per day: 1 Smoking cigarettes per day: 20.0 Years smoked: 20 Smoking pack-years: 20.00 Smoking status: Current every day smoker Substance use: never Living arrangements: with family Gender identity (if verbalized by the patient): Female Comments At time of signature, agree with nursing past medical, surgical, social and family history. There is no relevant family history pertinent to the presenting complaint Exam Narrative: GENERAL: Well-appearing, well-nourished, and in no acute distress. HEAD: Normocephalic EYES: PERRLA, conjunctivae clear ENT: Nares clear, turbinates edematous and erythematous, clear discharge. Mucous membranes moist. Right TM red with tube in place bloody drainage. Left TM pearly sadler with dull light reflex; no tragal tenderness. Oropharynx erythematous without lesions. Tonsils not enlarged and without exudate, no drooling, no hoarseness, no trismus, uvula midline. NECK: Supple. No lymphadenopathy
[2024-06-14 12:26] VITALS: BP 128/70; PULSE 66; RESP 18; TEMP 36.7; O2SAT 99
== END 2024-06-14 12:40 | disposition home or self-care (01) ==
PROVIDERS: Emergency Provider Registered Nurse; PCP Physician Assistant
DX: H66.91 Otitis media, unspecified, right ear (principal); F17.210 Nicotine dependence, cigarettes, uncomplicated; M19.90 Unspecified osteoarthritis, unspecified site; E11.9 Type 2 diabetes mellitus without complications; E78.00 Pure hypercholesterolemia, unspecified; I10 Essential (primary) hypertension
CPT/HCPCS: 99213; G0463

== ENCOUNTER 2024-10-01 12:09 | Emergency (ER) | payer OTHER, SELFPAY ==
[2024-10-01 12:22] VITALS: BP 131/63; PULSE 82; RESP 20; TEMP 37.5; O2SAT 100
--- NOTE | 2024-10-01 13:22 | ED_ITS ---
HPI - URI/Sore Throat General Chief Complaint: Upper Respiratory Infection Stated Complaint: exposed to covid Time Seen by Provider: 10/01/24 13:10 Source: patient, RN notes reviewed and old records reviewed Mode of arrival: ambulatory Limitations: no limitations History of Present Illness HPI Narrative: 54 year old female who presents to [facility] care with complaints of headache, body aches, chills and runny nose with recent exposure to friend with COVID and would like to be tested. Patient reports some right eat pain with no known drainage from her right ear has history of chronic ear infection with tube in right ear. Patient reports that she has low grade temperature noted. MD elicited complaint: fever, rhinorrhea, nasal congestion and other (headache and body aches) Onset (ago): day(s) (day 2 of symptoms) Consistency: progressively worsening Pain scale (0-10): 5 Able to tolerate fluids by mouth: Yes Treatments prior to arrival: ibuprofen and other (nasal spray) Related Data Home Medications ?Medication ?Instructions ?Recorded ?Confirmed ?Last Taken ?Type atorvastatin 40 mg tablet 40 mg PO DAILY 04/28/22 10/01/24 Unknown History calcium 600 mg (as carbonate)-vit 1 tablet PO DAILY 04/28/22 10/01/24 Unknown History D3 10 mcg (400 unit)-minerals tablet famotidine 20 mg tablet 20 mg PO BID 04/28/22 10/01/24 Unknown History lisinopril 10 mg tablet 10 mg PO DAILY 04/28/22 10/01/24 Unknown History omeprazole 20 mg capsule,delayed 20 mg PO DAILY 06/14/24 10/01/24 Unknown History release fluticasone propionate 50 intranasal 10/01/24 Unknown History mcg/actuation nasal spray,suspension pantoprazole 20 mg tablet,delayed mg PO 10/01/24 Unknown History release Allergies Allergy/AdvReac Type Severity Reaction Status Date / Time Penicillins Allergy Severe Anaphylactic Verified 10/01/24 12:12 Shock prednisone Allergy Unknown Unknown Verified 10/01/24 12:12 Sulfa (Sulfonamide Allergy Unknown HIVES Verified 10/01/24 12:12 Antibiotics) Review of Systems Review of Systems: CONSTITUTIONAL:Reports malaise, chills, sweats, low grade fever. EYES: Denies visual changes, redness, or discharge. ENT: Reports rhinorrhea, congestion, sinus pain, right otalgia and no sore throat. CARDIOVASCULAR: Denies chest pain, palpitations, or edema. RESPIRATORY: Reports cough.? Denies dyspnea. GASTROINTESTINAL: Denies abdominal pain, nausea, vomiting, diarrhea SKIN: Denies rash or itching. MUSCULOSKELETAL: Reports myalgia. NEUROLOGIC: Reports headache. All systems reviewed & are unremarkable except as noted in HPI and below PMFSH Past Medical History Medical History Eczema Anxiety and depression Diabetes type 2, controlled Arthritis Elevated cholesterol Chronic ear infection Hypertension Sinusitis Surgical History Surgical History History of placement of ear tubes right ear only History of carpal tunnel surgery of right wrist History of esophagogastroduodenoscopy (EGD) History of bilateral salpingo-oophorectomy H/O LEEP History of cholecystectomy Family History Family History Sibling Diabetes mellitus Mother Heart disease Father Heart disease Social History Social History Smoking packs per day: 1 Smoking cigarettes per day: 20.0 Years smoked: 20 Smoking pack-years: 20.00 Smoking status: Current every day smoker Substance use: never Living arrangements: with family Gender identity (if verbalized by the patient): Female Comments At time of signature, agree with nursing past medical, surgical, social and family history. There is no relevant family history pertinent to the presenting complaint Exam Narrative: GENERAL: Well-appearing, well-nourished, and in no acute distress. HEAD: Normocephalic EYES: PERRLA, conjunctivae clear ENT: Nares clear, turbinates edematous and erythematous, clear discharge. Mucous membranes moist Right TM red with ear tub in place with no drainage from ear noted.Left TM pearly sadler with dull light reflex bilaterally; no tragal tenderness. Oropharynx erythematous without lesions. Tonsils not enlarged and without exudate, no drooling, no hoarseness, no trismus, uvula midline.post nasal drainage NECK: Supple. No lymphadenopathy CHEST: Clear to auscultation, breath sounds equal. No wheezing, rhonchi, rales, or stridor. No respiratory distress, speaks in full sentences.dry cough,SAO2 100% on room air HEART: Regular rate and rhythm. No murmur heard. SKIN: Warm, dry, no rash. NEURO: Alert and oriented x3. PSYCH: Normal mood and affect Course Course Emergency Course: Patient is aware of diagnosis, understands and agrees to treatment plan.? Anticipatory guidance given.? Patient agrees to follow-up as directed and is aware of reasons to seek care at the emergency department. Portions of this record may have been created with voice recognition software Level of Care: Express Care Visit Vital Signs Vital signs: Vital Signs Temperature 37.5 C 10/01/24 12:22 Pulse Rate 82 10/01/24 12:22 Respiratory Rate 20 10/01/24 12:22 Blood Pressure 131/63 10/01/24 12:22 Pulse Oximetry 100 10/01/24 12:22 Oxygen Delivery Room Air 10/01/24 12:22 Temperature 37.5 C 10/01/24 12:22 Pulse Rate 82 10/01/24 12:22 Respiratory Rate 20 10/01/24 12:22 Blood Pressure 131/63 10/01/24 12:22 Pulse Oximetry 100 10/01/24 12:22 Oxygen Delivery Room Air 10/01/24 12:22 Reviewed MDM - URI/Sore Throat MDM Narrative Medical decision making narrative: Differential diagnosis considered: Swain virus, strep pharyngitis, allergic rhinitis, upper respiratory tract infection, sinusitis, rhinosinusitis, nasopharyngitis. viral pharyngitis, otitis media, otitis externa, pneumonia, bronchitis, viral cough syndrome, viral syndrome, and influenza.? Exam findings show no acute concerns or changes; patient is non-toxic appearing and is in no distress.? Patient is appropriate for outpatient treatment and follow-up. Differential Diagnosis Differential diagnosis: Likely upper respiratory infection, otitis media, viral infection and other (covid exposure) Medical Records Attestation: I reviewed the patient's medical records. Lab Data Attestation: I reviewed the patient's lab results. Lab results narrative: Covid antigen negative Labs: Lab Results 10/01/24 Range/Units 13:34 POC SARS CoV-2 Ag Negative (Negative) Critical Care Time Critical Care Time Critical Care Time: No Discharge Plan Discharge Clinical Impression: Otitis media, right Patient Disposition: Home, Self-Care Condition: Stable Instructions: Antibiotic Form, Ear Infection (GEN) Additional Instructions: Increase fluids especially juices and water [id number] cough and cold medicine of your choice for your symptoms Is a Zyrtec Claritin or Luisana daily may use Coricidin brand decongestant Tylenol or ibuprofen for any fever pain Continue nasal spray daily heat to the face 20-30 minutes 4-6 times a day for pain Salt water gargles, throat lozenges or throat sprays as desired Antibiotic as directed--finished the medication If your symptoms persist, change or worsen significantly before you can contact your personal physician then please, without delay, go to the emergency department for further evaluation. Follow-up with PCP in 7-10 days or sooner if needed Follow up with PCP soon in regards to your blood pressure which is elevated above threshold for referral. Blood pressure above 120/80 may indicate pre- hypertension. 131/63 Patient Language: Azerbaijani Prescriptions: New azithromycin 250 mg tablet See Rx Instructions .ROUTE .COMPLEX Qty: 6 0RF Rx Instructions: For 250 mg dose pack: take 500 mg today (day 1), then 250 mg for 4 days (days 2-5) No Action atorvastatin 40 mg tablet 40 mg PO DAILY famotidine 20 mg tablet 20 mg PO BID lisinopril 10 mg tablet 10 mg PO DAILY calcium carbonate-vit D3-min [Calcium-Vitamin D] 600 mg calcium- 400 unit Tablet 1 tablet PO DAILY pantoprazole 20 mg tablet,delayed release (DR/EC) PO fluticasone propionate 50 mcg/actuation spray,suspension INTRANASAL omeprazole 20 mg capsule,delayed release(DR/EC) 20 mg PO DAILY Follow-up/Referrals: Jose,KATELYN Almeida [Primary Care Provider] - Time of Disposition: 13:40 Quality [place] Coma Scale Eyes: Open Verbal: Oriented and Alert Motor: Follows Commands [place] Coma Total Score: 15
[2024-10-01 13:41] LABS: EDCOVIDSCREEN Negative (Negative)
== END 2024-10-01 13:50 | disposition home or self-care (01) ==
PROVIDERS: Emergency Provider Registered Nurse; PCP Physician Assistant
DX: H66.91 Otitis media, unspecified, right ear (principal); Z20.822 Contact with and (suspected) exposure to COVID-19; F17.210 Nicotine dependence, cigarettes, uncomplicated; E11.9 Type 2 diabetes mellitus without complications; I10 Essential (primary) hypertension; E78.00 Pure hypercholesterolemia, unspecified; M19.90 Unspecified osteoarthritis, unspecified site
CPT/HCPCS: 87426; 99213; G0463

== ENCOUNTER 2025-05-24 13:55 | Emergency (ER) | payer OTHER, SELFPAY ==
[2025-05-24 14:02] VITALS: BP 177/92; PULSE 68; RESP 20; TEMP 36.4; O2SAT 99
--- NOTE | 2025-05-24 15:01 | ED.BACK ---
HPI - Back Pain/Injury General Chief Complaint: Back Pain/Injury Stated Complaint: back pain/headache Time Seen by Provider: 05/24/25 15:02 Source: patient Mode of arrival: ambulatory Limitations: no limitations History of Present Illness HPI Narrative: 55-year-old female with history of diabetes and hypertension presented for complaint of left flank pain. Onset 3 days. Endorses constant aching sensation with intermittent sharpness. States this morning she woke up feeling fine. Pain is not reproducible. She has been taking Tylenol and ibuprofen and applying heat to the site. endorses occasional headache, hot flashes, and nausea. denies hematuria, vomiting, abdominal pain, flank pain, constipation, diarrhea, fevers or chills. Related Data Home Medications ?Medication ?Instructions ?Recorded ?Confirmed ?Last Taken ?Type atorvastatin 40 mg tablet 40 mg PO DAILY 04/28/22 10/01/24 Unknown History calcium 600 mg (as carbonate)-vit 1 tablet PO DAILY 04/28/22 10/01/24 Unknown History D3 10 mcg (400 unit)-minerals tablet famotidine 20 mg tablet 20 mg PO BID 04/28/22 10/01/24 Unknown History lisinopril 10 mg tablet 10 mg PO DAILY 04/28/22 10/01/24 Unknown History fluticasone propionate 50 intranasal 10/01/24 Unknown History mcg/actuation nasal spray,suspension pantoprazole 20 mg tablet,delayed mg PO 10/01/24 Unknown History release Allergies Allergy/AdvReac Type Severity Reaction Status Date / Time Penicillins Allergy Severe Anaphylactic Verified 05/24/25 14:09 Shock prednisone Allergy Unknown Unknown Verified 05/24/25 14:09 Sulfa (Sulfonamide Allergy Unknown HIVES Verified 05/24/25 14:09 Antibiotics) Review of Systems Review of Systems: CONSTITUTIONAL: Denies body aches, fever, chills EYES: Denies visual changes CARDIOVASCULAR: Denies chest pain, palpitations, or edema. RESPIRATORY: Denies cough or dyspnea. GASTROINTESTINAL: Denies abdominal pain, nausea, vomiting, or diarrhea. : Reports left flank pain. Denies dysuria, hematuria, frequency or urgency SKIN: Denies rash, itching, or wounds. MUSCULOSKELETAL: reports back pain NEUROLOGIC: Denies headache, numbness, tingling, or weakness. All systems reviewed & are unremarkable except as noted in HPI and below PMFSH Past Medical History Medical History Eczema Anxiety and depression Diabetes type 2, controlled Arthritis Elevated cholesterol Chronic ear infection Hypertension Sinusitis Surgical History Surgical History History of placement of ear tubes right ear only History of carpal tunnel surgery of right wrist History of esophagogastroduodenoscopy (EGD) History of bilateral salpingo-oophorectomy H/O LEEP History of cholecystectomy Family History Family History Sibling Diabetes mellitus Mother Heart disease Father Heart disease Social History Social History Smoking packs per day: 1 Smoking cigarettes per day: 20.0 Years smoked: 20 Smoking pack-years: 20.00 Smoking status: Current every day smoker Substance use: never Living arrangements: with family Gender identity (if verbalized by the patient): Female Comments At time of signature, I have reviewed and agree with nursing past medical, surgical, social and family history unless otherwise noted. Please see nursing chart for further information. There is no relevant family history pertinent to the presenting complaint Exam Narrative: GENERAL: Well-appearing NECK: Supple. full ROM CHEST: Speaks in full sentences. No respiratory distress. HEART: Regular rate and rhythm. Normal and equal peripheral pulses. ABD: Soft, round, nontender. MUSC: No Vertebral point tenderness. No CVA tenderness. BLEs with normal strength and sensation, normal range of motion. No open wounds, skin warm, dry, pink. Capillary refill less than 3 seconds. Gait steady. SKIN: Warm, dry, no rash. NEURO: Alert and oriented x3. Course Course Emergency Course: Patient is aware of diagnosis, understands and agrees to treatment plan. Anticipatory guidance given. Patient agrees to follow-up as directed and is aware of reasons to seek care at the emergency department. Portions of this record may have been created with voice recognition software Level of Care: Express Care Visit Vital Signs Vital signs: Vital Signs Temperature 97.6 F 05/24/25 14:02 Pulse Rate 68 05/24/25 14:02 Respiratory Rate 20 05/24/25 14:02 Blood Pressure 177/92 H 05/24/25 14:02 Pulse Oximetry 99 05/24/25 14:02 Oxygen Delivery Room Air 05/24/25 14:02 Temperature 97.6 F 05/24/25 14:02 Pulse Rate 68 05/24/25 14:02 Respiratory Rate 20 05/24/25 14:02 Blood Pressure 177/92 H 05/24/25 14:02 Pulse Oximetry 99 05/24/25 14:02 Oxygen Delivery Room Air 05/24/25 14:02 Reviewed MDM - Back Pain/Injury MDM Narrative Medical decision making narrative: discussed physical exam findings. shared decision making Patient declines ER transfer Or [facility]. She is agreeable to UA. Reviewed results with pt. Will culture. Advised supportive measures and s/s to go to the ER at length. She says she will f/u with pcp. Pt is stable and appropriate for outpt treatment and follow up with pcp. Differential Diagnosis Differential diagnosis: Likely lumbar radiculopathy, sciatica, strain of lumbar region, renal colic, pyelonephritis, discitis and other Discharge Plan Discharge Clinical Impression: Acute left flank pain Patient Disposition: Home Condition: Stable Instructions: Antibiotic Form, Flank Pain (ED) Additional Instructions: Your blood pressure reading was elevated (above 120/80) please follow-up with your primary care provider for further evaluation and management. If you develop worsening Blood Pressure symptoms, (headache, vision changes, dizziness, vomiting, chest pain, etc) go to the ER. Call 911. Your urine will be sent of for a culture to determine if bacteria is causing your symptoms. If the culture shows a UTI, you will be notified and an antibiotic will be called in for you. you will need to follow up with your PCP ; call today to schedule follow-up appointment. Go to the ER for any worsening symptoms or concerns. Patient Language: Luxembourgish Prescriptions: No Action atorvastatin 40 mg tablet 40 mg PO DAILY famotidine 20 mg tablet 20 mg PO BID lisinopril 10 mg tablet 10 mg PO DAILY calcium carbonate-vit D3-min [Calcium-Vitamin D] 600 mg calcium- 400 unit Tablet 1 tablet PO DAILY pantoprazole 20 mg tablet,delayed release (DR/EC) PO fluticasone propionate 50 mcg/actuation spray,suspension INTRANASAL Follow-up/Referrals: Jose,KATELYN Almeida [Primary Care Provider] - Time of Disposition: 15:31
[2025-05-24 15:28] LABS: EDUAAPPEAR Clear; EDUABILI Negative (Negative); EDUABLOOD Trace (Negative); EDUACOLOR1 Yellow; EDUAGLUCOSE Negative (Negative); EDUAKETONE Negative (Negative); EDUALEUKO Trace (Negative); EDUANITRATE Negative (Negative); EDUAPH 6.0; EDUAPROTEIN Negative (Negative); EDUASPGRAVITY 1.010; EDUAUROBILI 0.2
== END 2025-05-24 15:40 | disposition home or self-care (01) ==
PROVIDERS: Emergency Provider Nurse Practitioner Family; PCP Physician Assistant
DX: R10.9 Unspecified abdominal pain (principal); F17.210 Nicotine dependence, cigarettes, uncomplicated; E11.9 Type 2 diabetes mellitus without complications; E78.00 Pure hypercholesterolemia, unspecified; I10 Essential (primary) hypertension; M19.90 Unspecified osteoarthritis, unspecified site
CPT/HCPCS: 81003; 87086; 99213; G0463

== ENCOUNTER 2025-07-29 09:38 | Emergency (ER) | payer OTHER, SELFPAY ==
--- NOTE | ~2025-07-29 | XR_ITS ---
EXAMINATION: XR finger 4th RT min 2V, 07/29/2025 10:06 CDT HISTORY: RT 4th digit pain/fell, jammed this morning COMPARISON: No comparisons available. Findings: No acute fracture or malalignment. No significant degenerative changes. Soft tissues unremarkable. Impression: No acute fracture or malalignment. Reviewed, dictated and finalized at location P. Impression: No acute fracture or malalignment.
[2025-07-29 09:49] VITALS: BP 140/72; PULSE 69; RESP 18; TEMP 36.2; O2SAT 100
--- NOTE | 2025-07-29 10:03 | ED_ITS ---
HPI - Extremity Injury (Upper) General Chief Complaint: Extremity Injury, Upper Stated Complaint: Right Hand Finger Pain Time Seen by Provider: 07/29/25 10:03 Source: patient, RN notes reviewed and old records reviewed Mode of arrival: ambulatory Limitations: no limitations History of Present Illness HPI narrative: 55 year old female who presents to [facility] care with complaints of falling over raised dog bed today and jammed her right ring finger at 0630 this morning. Patient reports pain to the middle region of her right ring finger with some swelling and slight bruising to the mid aspect. Patient reports increased pain with any attempted movement of her right ring finge, Patient has strong right radial paulse and brisk capillary refill to right ring finger. Patient reports that she has taken some Tylenol for her pain and applied heat at home. MD complaint: injury to: right and finger (ring finger) Onset (ago): day(s) (this morning) Other injuries: none Handedness: right Place: home Severity: mild Treatments prior to arrival: other (Tylenol and heat applied at home and ice applied in clinic) Related Data Home Medications ?Medication ?Instructions ?Recorded ?Confirmed ?Last Taken ?Type atorvastatin 40 mg tablet 40 mg PO DAILY 04/28/2207/08 Unknown History calcium 600 mg (as carbonate)-vit 1 tablet PO DAILY 07/29/25 Unknown History D3 10 mcg (400 unit)-minerals tablet famotidine 20 mg tablet 20 mg PO BID 04/28/22 Unknown History lisinopril 10 mg tablet 10 mg PO DAILY 04/28/2207/08 Unknown History fluticasone propionate 50 intranasal 10/01/24 Unknown History mcg/actuation nasal spray,suspension pantoprazole 20 mg tablet,delayed mg PO 10/01/24 Unkn own History release Allergies Allergy/AdvReac Type Severity Reaction Status Date / Time Penicillins Allergy Severe Anaphylactic Verified 07/29/25 09:43 Shock prednisone Allergy Unknown Unknown Verified 07/29/25 09:43 Sulfa (Sulfonamide Allergy Unknown HIVES Verified 07/29/25 09:43 Antibiotics) Review of Systems Review of Systems: CONSTITUTIONAL: Denies fever, chills, or sweats. EYES: Denies visual changes, redness, or discharge. ENT: Denies rhinorrhea, congestion, sore throat, or otalgia. CARDIOVASCULAR: Denies chest pain, palpitations, or edema. RESPIRATORY: Denies cough or dyspnea. GASTROINTESTINAL: Denies abdominal pain, nausea, vomiting, or diarrhea. GENITOURINARY: Denies dysuria or hematuria. SKIN: Denies rash or itching. MUSCULOSKELETAL: Denies back pain, positive for pain to her right ring finger mid aspect after tripping over raised dog bed this morning, increased with movement of finger, or myalgia. NEUROLOGIC: Denies headache, numbness, or weakness. PSYCHIATRIC: Denies anxiety or depression. All systems reviewed & are unremarkable except as noted in HPI and below PMFSH Past Medical History Medical History Eczema Anxiety and depression Diabetes type 2, controlled Arthritis Elevated cholesterol Chronic ear infection Hypertension Sinusitis Surgical History Surgical History History of placement of ear tubes right ear only History of carpal tunnel surgery of right wrist History of esophagogastroduodenoscopy (EGD) History of bilateral salpingo-oophorectomy H/O LEEP History of cholecystectomy Family History Family History Sibling Diabetes mellitus Mother Heart disease Father Heart disease Social History Social History Smoking packs per day: 1 Smoking cigarettes per day: 20.0 Years smoked: 20 Smoking pack-years: 20.00 Smoking status: Current every day smoker Substance use: never Living arrangements: with family Gender identity (if verbalized by the patient): Female Comments At time of signature, agree with nursing past medical, surgical, social and family history. There is no relevant family history pertinent to the presenting complaint Exam Narrative: GENERAL: Well-appearing, well-nourished, and in no acute distress. HEAD: Normocephalic, atraumatic. EYES: PERRLA and EOMI. ENT: Nares clear, no rhinorrhea or epistaxis. Mucous membranes moist.TM without redness or swelling, ear tube in place to left ear. throat normal NECK: Supple.no lymphadenopathy CHEST: Clear to auscultation. No respiratory distress. SAO2 100% on room air HEART: Regular rate and rhythm. No murmur heard. Normal peripheral pulses. ABDOMEN: Soft, nontender, nondistended, normal active bowel sounds. EXTREMITIES: Normal range of motion. No edema. Exception noted to right ring finger with some bruising and swelling mid aspect, circulation , sensation intact with painful mobility. SKIN: Warm, dry, no rash. NEURO: No focal deficits. Alert and oriented x3. Course Course Emergency Course: Patient is aware of diagnosis, understands and agrees to treatment plan.? Anticipatory guidance given.? Patient agrees to follow-up as directed and is aware of reasons to seek care at the emergency department. Portions of this record may have been created with voice recognition software Level of Care: Express Care Visit Vital Signs Vital signs: Vital Signs Temperature 36.2 C L 07/29/25 09:49 Pulse Rate 69 07/29/25 09:49 Respiratory Rate 18 07/29/25 09:49 Blood Pressure 140/72 07/29/25 09:49 Pulse Oximetry 100 07/29/25 09:49 Oxygen Delivery Room Air 07/29/25 09:49 Temperature 36.2 C L 07/29/25 09:49 Pulse Rate 69 07/29/25 09:49 Respiratory Rate 18 07/29/25 09:49 Blood Pressure 140/72 07/29/25 09:49 Pulse Oximetry 100 07/29/25 09:49 Oxygen Delivery Room Air 07/29/25 09:49 Reviewed MDM - Extremity Injury (Upper) Differential Diagnosis Differential diagnosis: Likely finger sprain and other (finger fracture, contusion to left ring finger mid aspect.) Medical Records Attestation: I reviewed the patient's medical records. Imaging Data Attestation: I personally reviewed and interpreted this imaging study as follows: My impression: no fracture or malalignment Radiologist's impression: [facility] [address] [place] [address] XRay Report Signed Patient: Carolyn William : 1970 MR#: [id number] Age: 55 Acct:[id number] Loc: [facility] ADM Date: 07/29/[address]: Ordering Physician: Natacha Vila APRN Date of Service: 07/29/25 Procedure(s): XR finger 4th RT min 2V Accession Number(s): [id number] cc: Jose, Landy ZEPEDA; Natacha Vila APRN~ EXAMINATION: XR finger 4th RT min 2V, 07/29/2025 10:06 CDT HISTORY: RT 4th digit pain/fell, jammed this morning COMPARISON: No comparisons available. Findings: No acute fracture or malalignment. No significant degenerative changes. Soft tissues unremarkable. Impression: No acute fracture or malalignment. Reviewed, dictated and finalized at location P. Please be advised this is a medical document. It is intended for [id number] communication. It is written in medical language and may contain unfamiliar abbreviations or verbiage. Medical documents are intended to carry relevant information, facts as evident, and the clinical opinion of the practitioner at the time of the encounter. This report may have been done utilizing a voice recognition system. Attempts have been made to correct errors. However, there may be uncorrected grammatical, spelling, and recognition errors present. The file time of this note does not necessarily represent the time of service. Dictated By: Kameron Mac MD 07/29/25 1016 Signed By: <Electronically signed by Kameron Mac MD in OV> Critical Care Time Critical Care Time Critical Care Time: No Discharge Plan Discharge Clinical Impression: Contusion of right ring finger Qualifiers: Encounter type: initial encounter Damage to nail status: without damage Qualified Code(s): S60.041A - Contusion of right ring finger without damage to nail, initial encounter Patient Disposition: Home Condition: Stable Instructions: Contusion in Adults (ED), Finger Sprain (ED) Additional Instructions: Tylenol for lesser pain Exercise by straightening and bending your right ring finger frequently Follow-up with orthopedic surgeon or hand surgeon if any further concerns as arranged Follow-up with PCP if further problems or concerns Ice to the area 20-30 minutes 4-6 times a day Elevate above heart If your symptoms persist, change or worsen significantly before you can contact your personal physician then please, without delay, go to the emergency department for further evaluation. Follow-up with PCP in 7-10 days or sooner if needed Follow up with PCP soon in regards to your blood pressure which is elevated above threshold for referral. Blood pressure above 120/80 may indicate pre- hypertension. 140/72 Patient Language: Yemeni Prescriptions: No Action atorvastatin 40 mg tablet 40 mg PO DAILY famotidine 20 mg tablet 20 mg PO BID lisinopril 10 mg tablet 10 mg PO DAILY calcium carbonate-vit D3-min [Calcium-Vitamin D] 600 mg calcium- 400 unit Tablet 1 tablet PO DAILY pantoprazole 20 mg tablet,delayed release (DR/EC) PO fluticasone propionate 50 mcg/actuation spray,suspension INTRANASAL Follow-up/Referrals: Jose,KATELYN Almeida [Primary Care Provider, Unknown] Time of Disposition: 10:30 Quality [place] Coma Scale Eyes: Open Verbal: Oriented and Alert Motor: Follows Commands [place] Coma Total Score: 15
== END 2025-07-29 10:34 | disposition home or self-care (01) ==
PROVIDERS: Emergency Provider Registered Nurse; PCP Physician Assistant
DX: S60.041A Contusion of right ring finger without damage to nail, initial encounter (principal); W01.0XXA Fall on same level from slipping, tripping and stumbling without subsequent striking against object, initial encounter; I10 Essential (primary) hypertension; E78.00 Pure hypercholesterolemia, unspecified; E11.9 Type 2 diabetes mellitus without complications; F17.210 Nicotine dependence, cigarettes, uncomplicated; M19.90 Unspecified osteoarthritis, unspecified site
CPT/HCPCS: 73140; 99213; G0463